=== PATIENT | female | born 1935 | race Caucasian/White ===

== ENCOUNTER → 2016-09-03 | Outpatient (CLI) | payer OTHER | LOC: BMCIMAGING 07:28 | DX: Z12.31 Encounter for screening mammogram for malignant neoplasm of breast (principal) | CPT/HCPCS: G0202 ==

== ENCOUNTER 2016-09-04 17:47 | Emergency (ER) | payer OTHER ==
[2016-09-04 17:54] VITALS: TEMP 98.1
--- NOTE | 2016-09-04 18:43 | EDPHY ---
H & P Time Seen by Provider: 09/04/16 18:08 HPI/ROS: Chief complaint. Urinary tract infection, rash HPI. Patient is a 81-year-old female presents emergency department with an itchy rash that started yesterday. She was seen by her physician Dr. Degroot who told her that she could take Claritin for the rash however she has not taken anything. It was initially itchy now really does not bother her. 2 weeks ago she had a diagnosis of UTI and was treated with an unknown antibiotic. On re-evaluation yesterday the patient continued to have a urinary tract infection and was prescribed the same antibiotic again. The patient does not know the name of the antibiotic. She also had a mammogram yesterday. The rash apparently is somewhat mobile on her body. The patient has no trouble swallowing, shortness of breath, chest discomfort. She was seen at urgent care and sent over because of apparent rapid heart rate and low pulse ox. ROS Constitutional. no fever/chills, no weakness Eyes. no problems with vision ENT. no sore throat, no nasal drainage Cardiovascular. no chest pain Respiratory. no shortness of breath, no cough Abdominal. no abdominal pain, no nausea/vomiting, no diarrhea . no problems urinating MS. no calf pain/swelling, no neck/back pain, no joint pain Skin. Rash Lymph. no swollen glands Neuro. no headache, no dizziness, no difficulty walking or with speech Past Medical/Surgical History: Healthy denies past medical history Social History: , nonsmoker, no alcohol Smoking Status: Never smoked Constitutional: Initial Vital Signs Temperature (C) 36.7 C 09/04/16 17:49 Heart Rate 96 09/04/16 17:49 Respiratory Rate 18 09/04/16 17:49 Blood Pressure 136/70 H 09/04/16 17:49 O2 Sat (%) 94 09/04/16 17:49 O2 Delivery Mode Room Air Allergies/Adverse Reactions: No Known Allergies Allergy (Unverified 09/04/16 17:54) Home Medications: Medication Instructions Recorded Cephalexin [Keflex (*)] 500 mg PO TID #21 cap 09/04/16 On An Antibiotic That Begins With 09/04/16 "A" Medical Decision Making - Diagnostics EKG Interpretation: EKG interpreted by me shows normal sinus rhythm with normal interval. There is left axis deviation. QRS is normal there is no significant ST elevation or depression. There is no arrhythmia. The rate is 89 Imaging Results: Imaging Impressions Chest X-Ray 09/04/16 18:45 Impression: 1. Clear lungs. No acute process to explain pain. 2. Right hilar fullness. Query central mass versus superimposed vessels. Findings discussed with Emergency Department physician, Angelo Cisneros M.D., at September 04, 2016 at 1928 hours. One-view chest x-ray reviewed by me and discussed with Dr. Reynolds shows fullness in the right hilum. He recommends chest CT Chest CT reviewed by me and discussed with Dr. Reynolds shows tortuous aorta but no mass, lymphadenopathy, pulmonary embolus. There is mild peribronchial thickening ED Course/Re-evaluation: I called [facility] as I was unable to access her medication on corhio. The [facility] pharmacy was closed. I called the [facility] in at ask them to look up the patient's chart. They found that the patient has been treated with Macrobid. Serial re-evaluations and again ultimately at 9:05 p.m.. Patient is stable. She looks well. We discussed lab and imaging study results we discussed treatment plan including criteria for return importance of follow-up further evaluation. She expresses understanding and agreement Differential Diagnosis: Considered UTI. The patient looks well as stable vital signs. She has a rash that may be rash to antibiotics. The plan will be to change antibiotics and have close follow-up. The patient is continued to a encouraged to take Claritin for her rash. The rash may be allergic reaction to the Macrobid. The etiology of the rash is not entirely clear - Data Points Laboratory Results: Laboratory Results 09/04/16 19:00 09/04/16 19:00 09/04/16 09/04/16 19:00 19:00 WBC 19.23 10^3/uL H 10^3/uL (3.80-9.50) RBC 4.72 10^6/uL 10^6/uL (4.18-5.33) Hgb 15.1 g/dL g/dL (12.6-16.3) Hct 43.8 % % (38.0-47.0) MCV 92.8 fL fL (81.5-99.8) MCH 32.0 pg pg (27.9-34.1) MCHC 34.5 g/dL g/dL (32.4-36.7) RDW 12.2 % % (11.5-15.2) Plt Count 171 10^3/uL 10^3/uL (150-400) MPV 10.4 fL fL (8.7-11.7) Neut % (Auto) 93.8 % H % (39.3-74.2) Lymph % (Auto) 1.4 % L % (15.0-45.0) [place] % (Auto) 2.9 % L % (4.5-13.0) Eos % (Auto) 0.1 % L % (0.6-7.6) Baso % (Auto) 0.4 % % (0.3-1.7) Nucleat RBC Rel Count 0.0 % % (0.0-0.2) Absolute Neuts (auto) 18.05 10^3/uL H 10^3/uL (1.70-6.50) Absolute Lymphs (auto) 0.27 10^3/uL L 10^3/uL (1.00-3.00) Absolute Monos (auto) 0.56 10^3/uL 10^3/uL (0.30-0.80) Absolute Eos (auto) 0.02 10^3/uL L 10^3/uL (0.03-0.40) Absolute Basos (auto) 0.07 10^3/uL 10^3/uL (0.02-0.10) Absolute Nucleated RBC 0.00 10^3/uL 10^3/uL (0-0.01) Immature Gran % 1.4 % H % (0.0-1.1) Immature Gran # 0.26 10^3/uL H 10^3/uL (0.00-0.10) Sodium 134 mEq/L mEq/L (134-144) Potassium 4.0 mEq/L mEq/L (3.5-5.2) Chloride 97 mEq/L mEq/L (97-110) Carbon Dioxide 25 mEq/l mEq/l (22-31) Anion Gap 12 mEq/L mEq/L (8-16) BUN 16 mg/dL mg/dL (7-23) Creatinine 0.9 mg/dL mg/dL (0.6-1.0) Estimated GFR > 60 Glucose 136 mg/dL H mg/dL (70-100) Calcium 9.3 mg/dL mg/dL (8.5-10.4) Troponin I 0.013 ng/mL ng/mL (0-0.034) Medications Given: Discontinued Medications Cephalexin HCl (Keflex) 500 mg PO EDNOW ONE PRN Reason: Protocol Stop: 09/04/16 18:53 Last Admin: 09/04/16 19:03 Dose: 500 mg Sodium Chloride (Ns) 1,000 mls @ 0 mls/hr IV ONCE ONE PRN Reason: Wide Open Stop: 09/04/16 18:46 Last Admin: 09/04/16 19:03 Dose: 1,000 mls Departure - Departure Disposition: Home, Routine, Self-Care Clinical Impression: Urinary tract infection Qualifiers: Urinary tract infection type: site unspecified Hematuria presence: without hematuria Qualified Code(s): N39.0 - Urinary tract infection, site not specified Condition: Good Instructions: Urinary Tract Infection in Women (ED) Additional Instructions: Drink plenty of fluids and stay hydrated keeping your urine clear. Claritin will help with rash. Cephalexin (Keflex) as antibiotic for urinary tract infection. Take 1 pill 3 times daily. Return for fever, vomiting. Recheck with Dr. Degroot in 2 days for urine culture results and to make sure you're improving Referrals: Sammi Degroot MD [Primary Care Provider] - 1-2 days without fail Prescriptions: Cephalexin [Keflex (*)] 500 mg PO TID #21 cap
[2016-09-04] MEDS ORDERED: NS 1,000 ML IV ONE (18:45)
[2016-09-04] MEDS ORDERED: CEPHALEXIN 500 MG CAP PO ONE (18:52)
--- NOTE | 2016-09-04 18:57 | CPEKG ---
Heart Rate: 89 RR Interval: 674 P-R Interval: 168 QRSD Interval: 116 QT Interval: 364 QTC Interval: 443 P [place]: 69 QRS [place]: -20 T Wave [place]: 16 EKG Severity - ABNORMAL ECG - EKG Impression: SINUS RHYTHM EKG Impression: PROBABLE LEFT ATRIAL ABNORMALITY EKG Impression: NONSPECIFIC INTRAVENTRICULAR CONDUCTION DELAY Electronically Signed By: Angelo Cisneros 04-Sep-2016 21:32:01
[2016-09-04 19:21] LABS: % IMMATURE GRANULYOCYTES 1.4 % (0.0-1.1); ABSOLUTE IMMATURE GRANULOCYTES 0.26 10^3/uL (0.00-0.10); ADD DIFF? NO; ADD MORPH? NO; ADD SCAN? NO; ATYPICAL LYMPHOCYTE FLAG 0 (0-99); FRAGMENT RBC FLAG 0 (0-99); HEMATOCRIT 43.8 % (38.0-47.0); HEMOGLOBIN 15.1 g/dL (12.6-16.3); LEFT SHIFT FLG 30 (0-99); LIPEMIA HEMOLYSIS FLAG 90 (0-99); MEAN CELL HEMOGLOBIN CONCENTR. 34.5 g/dL (32.4-36.7); MEAN CELL VOLUME 92.8 fL (81.5-99.8); MEAN PLATELET VOLUME 10.4 fL (8.7-11.7); PLATELET CLUMPS FLAG 0 (0-99); PLATELET COUNT 171 10^3/uL (150-400); RED BLOOD CELL COUNT 4.72 10^6/uL (4.18-5.33); RED CELL DISTRIBUTION WIDTH 12.2 % (11.5-15.2)
[2016-09-04 19:33] LABS: ANION GAP 12 mEq/L (8-16); CALCIUM 9.3 mg/dL (8.5-10.4); CARBON DIOXIDE 25 mEq/l (22-31); CHLORIDE 97 mEq/L (97-110); CREATININE 0.9 mg/dL (0.6-1.0); GLOMERULAR FILTRATION RATE > 60; GLUCOSE 136 mg/dL (70-100); SODIUM 134 mEq/L (134-144)
[2016-09-04 19:44] LABS: TROPONIN I 0.013 ng/mL (0-0.034)
[2016-09-04] MEDS ORDERED: IOPAMIDOL (ISOVUE 370) 100 ML BTL IV ONE (20:22)
[2016-09-04] MEDS ORDERED: CEPHALEXIN 500MG PREPACK#4 BTL TAKEHOME ONE (21:17)
[2016-09-04 22:10] VITALS: BP 110/84; PULSE 78; RESP 16; O2SAT 92
== END 2016-09-04 22:08 | disposition home or self-care (01) ==
DX: N39.0 Urinary tract infection, site not specified (principal)
CPT/HCPCS: Q9967

== ENCOUNTER → 2017-09-19 | Outpatient (CLI) | payer OTHER | LOC: BMCIMAGING 08:54 | PROVIDERS: ATTEND Family Medicine | DX: Z12.31 Encounter for screening mammogram for malignant neoplasm of breast (principal) ==

== ENCOUNTER → 2018-10-14 | Outpatient (CLI) | payer OTHER | LOC: BMCIMAGING 14:42 ==